=== PATIENT | female | born 1970 | race American Indian/Alaskan Native ===

== ENCOUNTER 2017-09-26 15:47 | Outpatient (CLI) | payer MEDICAID ==
--- NOTE | 2017-09-26 20:32 | XRay Report ---
FINAL REPORT EXAM: XR SACROILIAC JOINTS 3+V HISTORY: LOW BACK PAIN/HIP BILAT PRIMARY OA TECHNIQUE: Sacroiliac joints three views PRIORS: None. FINDINGS: There is mild subchondral irregularity and iliac sclerotic change at the SI joints bilaterally. No evidence for joint space narrowing or proliferative bony change. No fracture or dislocation identified. IMPRESSION: Findings are suggestive of mild sacroiliitis
== END 2017-09-26 15:48 | disposition home or self-care (01) ==
LOC: XRAY 15:47
PROVIDERS: ATTEND Physical Medicine & Rehabilitation
DX: M16.0 Bilateral primary osteoarthritis of hip (principal); M54.5 Low back pain
CPT/HCPCS: 72202